=== PATIENT | male | born 1980 | race Caucasian/White ===

== ENCOUNTER 2018-01-23 19:37 | Emergency (ER) | payer OTHER ==
[~2018-01-23] VITALS: Ht 175.2 cm; Wt 76.7 kg
[~2018-01-23 19:37] MED LIST: KEFLEX500 MG PO; VICODIN 500 MG-1 TAB PO; VICODIN ES 7501 TAB PO
[2018-01-23] MEDS ORDERED: MEDROL DOSEPAK4 MG PO (21:23)
[2018-01-23] MEDS ORDERED: NAPROSYN500 MG PO (21:23)
== END 2018-01-23 21:25 | disposition home or self-care (01) ==
LOC: ED 19:37
DX: M70.32 Other bursitis of elbow, left elbow (principal); F17.200 Nicotine dependence, unspecified, uncomplicated; Y93.89 Activity, other specified